=== PATIENT | female | born 1965 | race Caucasian/White ===

== ENCOUNTER → 2018-09-07 17:42 | Outpatient (CLI) | payer MEDICARE, MEDICAID | END | disposition home or self-care (01) | LOC: D.MAMMO 14:30 | DX: Z12.31 Encounter for screening mammogram for malignant neoplasm of breast (principal) ==

== ENCOUNTER → 2018-12-28 08:21 | Outpatient (CLI) | payer OTHER, MEDICAID | END | disposition home or self-care (01) | LOC: D.MRI 08:21 | DX: M54.16 Radiculopathy, lumbar region (principal) ==

== ENCOUNTER 2019-04-12 09:33 | Emergency (ER) | payer OTHER, MEDICAID ==
[2019-04-12 09:34] VITALS: BMI 31.1
[2019-04-12] MEDS ORDERED: HYDROCHLOROTHIA25 MG PO (09:37)
[2019-04-12] MEDS ORDERED: CYMBALTA30 MG PO (09:37)
[2019-04-12] MEDS ORDERED: CELEBREX200 MG PO (09:38)
[2019-04-12] MEDS ORDERED: TRAZODONE HCL150 MG PO (09:38)
[2019-04-12] MEDS ORDERED: VOLTAREN75 MG PO (10:13)
[2019-04-12 10:50] VITALS: BP 152/87
== END 2019-04-12 10:50 | disposition home or self-care (01) ==
LOC: D.ER 09:33
DX: M25.552 Pain in left hip (principal); M25.512 Pain in left shoulder

== ENCOUNTER 2019-09-24 08:00 | Outpatient (CLI) | payer OTHER, MEDICAID ==
[~2019-09-24 08:00] MED LIST: CELEBREX200 MG PO; CYMBALTA30 MG PO; HYDROCHLOROTHIA25 MG PO; TRAZODONE HCL150 MG PO; VOLTAREN75 MG PO
== END 2019-09-24 23:59 | disposition home or self-care (01) ==
LOC: D.MAMMO 08:00
PROVIDERS: ATTEND Family Medicine
DX: Z12.31 Encounter for screening mammogram for malignant neoplasm of breast (principal)